=== PATIENT | female | born 1985 | race Two or more races ===

== ENCOUNTER 2019-10-26 09:08 | Emergency (ER) | payer MEDICAID ==
[~2019-10-26] VITALS: Ht 152.4 cm; Wt 64.9 kg
[2019-10-26] MEDS ORDERED: TDAP DIPH,PERTUSS,TET VAC/PF 0.5 ML DISP.SYRIN IM ONE ×2 (09:30→09:36)
--- NOTE | 2019-10-26 09:42 | NUR ---
Laceration on hand was cleansed and irrigated. Dermabond applied by . Vaccine administered (with consent). DC AND FOLLOW UP INSTRUCTIONS GIVEN AND EXPLAINED TO PATIENT WHO STATES HE UNDERSTANDS ALL INSTRUCTIONS
== END 2019-10-26 09:43 | disposition home or self-care (01) ==
LOC: ER 09:08
DX: S61.411A Laceration without foreign body of right hand, initial encounter (principal); W26.0XXA Contact with knife, initial encounter; Y92.89 Other specified places as the place of occurrence of the external cause
CPT/HCPCS: 90715; A4663